=== PATIENT | female | born 1945 | race Caucasian/White ===

== ENCOUNTER 2020-01-05 14:50 | Day surgery (SDC) | payer MEDICARE ==
[2020-01-05] MEDS ORDERED: Depo-Medrol 40 MG/ML IM ONE (14:51)
[2020-01-05] MEDS ORDERED: BUPIVACAINE 0.5% VIAL IJ ONE (14:51)
[2020-01-05] MEDS ORDERED: Xylocaine 1% Vial 30 ML PF IJ ONE (14:51)
--- NOTE | 2020-01-05 16:57 | XRAY ---
Indication: Right knee injection. Intraoperative fluoroscopy was provided for 20 seconds. Single digital spot image submitted for interpretation demonstrates needle tip projecting over the right femur intercondylar notch. Small amount of contrast injected for needle tip placement. Correlate with intraoperative findings/report.
--- NOTE | 2020-01-05 17:10 | XRAY ---
20 seconds fluoroscopy time in surgery for right knee intra-articular injection.
== END 2020-01-05 16:58 | disposition home or self-care (01) ==
LOC: SDC-PAIN 14:50
PROVIDERS: ATTEND Psychiatry & Neurology Pain Medicine
DX: M19.011 Primary osteoarthritis, right shoulder (principal); I10 Essential (primary) hypertension; D64.9 Anemia, unspecified; F41.8 Other specified anxiety disorders; R01.1 Cardiac murmur, unspecified; Z79.899 Other long term (current) drug therapy
CPT/HCPCS: 20610; 73560; 77002; J1030; J2001; Q9966